=== PATIENT | female | born 1955 | race Two or more races ===

== ENCOUNTER 2020-10-05 13:37 | Day surgery (SDC) | payer OTHER ==
[~2020-10-05 13:37] MED LIST: CIPRO PO; HUMULI; NAPR500T14 PO
== END 2020-10-05 22:46 | disposition home or self-care (01) ==
LOC: CIR.AMB 13:37
PROVIDERS: ATTEND Orthopaedic Surgery Hand Surgery
DX: S62.310A Displaced fracture of base of second metacarpal bone, right hand, initial encounter for closed fracture (principal); S62.312A Displaced fracture of base of third metacarpal bone, right hand, initial encounter for closed fracture; S62.314A Displaced fracture of base of fourth metacarpal bone, right hand, initial encounter for closed fracture; Z20.822 Contact with and (suspected) exposure to COVID-19

== ENCOUNTER → 2023-07-02 06:00 | Outpatient (CLI) | payer OTHER ==
[~2023-07-02 06:00] MED LIST changes: +HUMULIN 70100 UNIT/2 IJ
[2023-07-02 08:48] LABS: HEMATOCRIT 43.1 % (36.0-45.00); HEMOGLOBIN 15.2 g/dL (12.0-15.00); MEAN CORPUSCULAR HEMOGLOBIN 29.3 pg (27.00-32.0); MEAN CORPUSCULAR HGB CONC 35.3 g/dl (32.0-36.0); PLATELET COUNT 202 K/uL (150-450); RED BLOOD COUNT 5.19 M/uL (4.00-6.00); RED CELL DISTRIBUTION WIDTH 13.7 % (11.5-14.5)
[2023-07-02 09:26] LABS: INR 1.03; PARTIAL THROMBOPLASTIN TIME 26.2 SECONDS (22.0-34.0); PROTHROMBIN TIME 10.8 SECONDS (9.0-11.5)
[2023-07-02 09:32] LABS: ALBUMIN 4.1 gm/dL (3.4-5.0); BILIRUBIN TOTAL 0.7 mg/dL (0.3-1.2); CALCIUM 10.2 mg/dL (8.5-10.1); CREATININE SERUM 0.72 mg/dL (0.55-1.02); GFR 81.04; GLOBULINA 3.5 G/DL (2.4-3.5); POTASSIUM 4.53 mEq/L (3.5-5.1); TOTAL PROTEIN 7.6 gm/dL (6.4-8.2)
[2023-07-02 09:38] LABS: URINE APPEARANCE Clear; URINE BILIRRUBIN Negative (NEGATIVE); URINE BLOOD Negative; URINE COLOR Yellow; URINE LEUKOCYTE Trace; URINE NITRATE Negative; URINE PROTEIN Negative (NEGATIVE); URINE UROBILINOGEN 0.2 E.U./dl
[2023-07-02 09:43] LABS: URINE BACTERIA 937.3 uL (0.0-1933); URINE EPITHELIAL CELLS 17.1 uL (0.0-38.8); URINE WBC 35.5 uL (0.0-23.2)
[2023-07-02 09:51] LABS: URINE GLUCOSE >=1000 MG/DL (NEGATIVE); URINE RBC 1.2 uL (0.0-20.8)
== END | disposition home or self-care (01) ==
LOC: LAB 06:00 → ADM 12:45 → CIR.AMB 07-03 12:45 → EDSTATUS 07-03 12:45 → CIR.AMB 07-03 22:45
PROVIDERS: ATTEND Orthopaedic Surgery Hand Surgery
DX: Z01.810 Encounter for preprocedural cardiovascular examination (principal); I10 Essential (primary) hypertension; E11.9 Type 2 diabetes mellitus without complications; E78.00 Pure hypercholesterolemia, unspecified; E78.3 Hyperchylomicronemia; D65 Disseminated intravascular coagulation [defibrination syndrome]; D66 Hereditary factor VIII deficiency; N39.0 Urinary tract infection, site not specified; R22.31 Localized swelling, mass and lump, right upper limb

== ENCOUNTER → 2023-07-03 06:20 | Outpatient (CLI) | payer OTHER ==
[2023-07-03 07:29] LABS: CALCIUM 10.1 mg/dL (8.5-10.1); CREATININE SERUM 0.75 mg/dL (0.55-1.02); GFR 77.31; POTASSIUM 4.02 mEq/L (3.5-5.1)
== END | disposition home or self-care (01) ==
LOC: LAB 06:20
PROVIDERS: ATTEND Internal Medicine
DX: E11.00 Type 2 diabetes mellitus with hyperosmolarity without nonketotic hyperglycemic-hyperosmolar coma (NKHHC) (principal); Z88.0 Allergy status to penicillin

== ENCOUNTER → 2023-08-02 11:49 | Outpatient (CLI) | payer OTHER ==
[~2023-08-02 11:49] MED LIST changes: +JANUMET XR 50-1 EAC1 PO; +METFORMIN HCL1000 M2 PO
[2023-08-02 13:40] LABS: MYCOPLASMA PNEUMONIAE IGM NON REACTIVE (NO REACTIVE)
== END | disposition home or self-care (01) ==
LOC: LAB 11:49
PROVIDERS: ATTEND Internal Medicine
DX: R05.8 Other specified cough (principal)

== ENCOUNTER 2023-08-07 08:08 | Day surgery (SDC) | payer OTHER ==
[2023-08-06 09:53] LABS: URINE APPEARANCE Clear; URINE BILIRRUBIN Negative (NEGATIVE); URINE BLOOD Negative; URINE COLOR Yellow; URINE GLUCOSE Negative (NEGATIVE); URINE LEUKOCYTE Trace; URINE NITRATE Negative; URINE PROTEIN Negative (NEGATIVE); URINE UROBILINOGEN 0.2 E.U./dl
[2023-08-06 09:54] LABS: URINE BACTERIA 1127.3 uL (0.0-1933); URINE EPITHELIAL CELLS 30.5 uL (0.0-38.8); URINE RBC 2.7 uL (0.0-20.8); URINE WBC 11.4 uL (0.0-23.2)
[2023-08-06 09:55] LABS: HEMATOCRIT 40.4 % (36.0-45.00); HEMOGLOBIN 13.9 g/dL (12.0-15.00); MEAN CELL VOLUME 84.9 fL (80.00-100.00); MEAN CORPUSCULAR HEMOGLOBIN 29.3 pg (27.00-32.0); MEAN CORPUSCULAR HGB CONC 34.5 g/dl (32.0-36.0); PLATELET COUNT 251 K/uL (150-450); RED BLOOD COUNT 4.76 M/uL (4.00-6.00); RED CELL DISTRIBUTION WIDTH 13.8 % (11.5-14.5)
[2023-08-06 10:29] LABS: INR 1.04; PARTIAL THROMBOPLASTIN TIME 26.2 SECONDS (22.0-34.0); PROTHROMBIN TIME 10.9 SECONDS (9.0-11.5)
[2023-08-06 10:59] LABS: ALBUMIN 3.8 gm/dL (3.4-5.0); BILIRUBIN TOTAL 0.44 mg/dL (0.3-1.2); CALCIUM 10.1 mg/dL (8.5-10.1); CREATININE SERUM 0.74 mg/dL (0.55-1.02); GFR 78.52; POTASSIUM 4.52 mEq/L (3.5-5.1); TOTAL PROTEIN 6.8 gm/dL (6.4-8.2)
== END 2023-08-07 16:05 | disposition home or self-care (01) ==
LOC: CIR.AMB 08:08
PROVIDERS: ATTEND Orthopaedic Surgery Hand Surgery
DX: R22.31 Localized swelling, mass and lump, right upper limb (principal); D21.11 Benign neoplasm of connective and other soft tissue of right upper limb, including shoulder; Z20.822 Contact with and (suspected) exposure to COVID-19; E11.9 Type 2 diabetes mellitus without complications; I10 Essential (primary) hypertension; Z88.0 Allergy status to penicillin